=== PATIENT | male | born 1955 | race Caucasian/White ===

== ENCOUNTER 2016-05-27 15:10 | Emergency (ER) | payer BC ==
[~2016-05-27] VITALS: Ht 175.3 cm; Wt 78.2 kg
[~2016-05-27 15:10] MED LIST: ASPIRIN 32325 MG/TA1 PO; ASPIRIN 81M81 MG/TA2 PO; COZAAR 50MG50 MG/TAB PO; DESYREL 50MG50 MG PO; EPA FISH OIL1000 MG PO; LIPITOR 80MG80 MG PO; NORCO 325 MG-7.1 TAB PO; OCUVITE1 TA1 PO; ROXICODONE 55 MG/TAB PO; TOPROL XL 50MG50 MG PO; TYLENOL 325MG325 MG PO; ZYRTEC 10MG10 MG PO
[2016-05-27 15:12] VITALS: TEMP 97.6
[2016-05-27 15:35] LABS: BASO % 0.3 % (0.0-2.0); EOS # 0.1 (0.0-0.7); EOS % 1.3 % (0-4.0); GRAN # 4.3 (1.4-6.5); GRAN % 70.8 % (42.2-75.2); HEMATOCRIT 38.8 % (42.0-52.0); HEMOGLOBIN 13.1 g/dl (13.5-18.0); LYMPH # 1.3 (1.2-3.4); LYMPH % 20.5 % (20.0-51.0); MEAN CELL VOLUME 90 fl (80.0-100.0); MEAN CORPUSCULAR HEMOGLOBIN 30 pg (27.0-31.0); MEAN CORPUSCULAR HGB CONC 34 g/dl (33.0-37.0); MEAN PLATELET VOLUME 9.9 fl (7.4-10.4); MONO # 0.4 (0.1-0.6); MONO % 6.9 % (1.7-9.3); PLATELET COUNT 173 K/mm3 (130-400); RED BLOOD COUNT 4.33 M/mm3 (4.20-5.60); REDCELL DISTRIBUTION WIDTH-CV 13.4 % (11.5-14.5); WHITE BLOOD COUNT 6.1 K/mm3 (4.8-10.8)
[2016-05-27 15:39] LABS: INR 1.3 (0.8-3.0); PROTHROMBIN TIME 14.1 SECONDS (9.7-12.8)
[2016-05-27 15:41] LABS: PARTIAL THROMBOPLASTIN TIME 28.3 SECONDS (26.0-37.0)
[2016-05-27 15:48] LABS: ADJUSTED CALCIUM 9.1 mg/dL (8.4-10.2); ALANINE AMINOTRANSFERASE 38 U/L (21-72); ALBUMIN 4.1 gm/dL (3.5-5.0); ALKALINE PHOSPHATASE 92 U/L (50-136); ANION GAP 10 mmol/L (7-16); BLOOD UREA NITROGEN 11 mg/dL (9-20); CALCIUM 9.2 mg/dL (8.4-10.2); CARBON DIOXIDE 28 mmol/L (22-30); CHLORIDE 100 mmol/L (98-107); CREATININE, serum 0.82 mg/dL (0.66-1.25); GLUCOSE 105 mg/dL (74-106); POTASSIUM 3.9 mmol/L (3.4-5.0); SODIUM 138 mmol/L (137-145); TOTAL PROTEIN 6.7 gm/dL (6.4-8.2)
[2016-05-27] MEDS ORDERED: TYLENOL 500MG500 MG PO (15:56)
[2016-05-27 16:00] LABS: TROPONIN-I < 0.012 ng/mL (0.000-0.034)
[2016-05-27 18:46] VITALS: BP 118/64; PULSE 65
== END 2016-05-27 18:52 | disposition home or self-care (01) ==
LOC: COL.ER 15:10
PROVIDERS: Emergency Medicine
DX: R07.9 Chest pain, unspecified (principal)

== ENCOUNTER 2016-06-08 15:00 | Outpatient (RCR) | payer BC ==
[~2016-06-08 15:00] MED LIST changes: +TYLENOL 500MG500 MG PO
== END 2016-06-18 12:23 | disposition home or self-care (01) ==
LOC: WSPT 15:00
DX: Z47.89 Encounter for other orthopedic aftercare (principal); M25.861 Other specified joint disorders, right knee
CPT/HCPCS: G0283-GP

== ENCOUNTER 2016-12-25 16:00 | Outpatient (RCR) | payer BC | END 2016-12-27 17:22 | LOC: WSPT 16:00 | DX: M54.16 Radiculopathy, lumbar region (principal) ==

== ENCOUNTER → 2017-01-28 | Outpatient (CLI) | payer BC | LOC: COL.RAD 07:00 | DX: R09.89 Other specified symptoms and signs involving the circulatory and respiratory systems (principal) ==

== ENCOUNTER 2017-02-07 15:25 | Inpatient (IN) | payer BC ==
[~2017-02-07] VITALS: Ht 175.3 cm; Wt 83.0 kg
[2017-04-30] VITALS (12 sets, daily range): BP systolic 102–138; BP diastolic 57–78; PULSE 49–69; TEMP 97.5–98.7
[2017-05-01 04:51] VITALS: BP 112/60; PULSE 77; TEMP 97.8
[2017-05-01 06:40] LABS: HEMOGLOBIN 12.6 g/dl (13.5-18.0)
[2017-05-01 06:43] LABS: HEMATOCRIT 36.7 % (42.0-52.0)
[2017-05-01 07:54] VITALS: BP 118/63; PULSE 77; TEMP 97
[2017-05-01 12:07] VITALS: BP 102/57; PULSE 50; TEMP 97.6
== END 2017-05-01 17:00 | disposition home or self-care (01) | DRG 470 ==
LOC: SURG 04-30 08:14 → JCC 04-30 10:30 → SURG 05-01 17:00
PROVIDERS: Orthopaedic Surgery
PROC: 0SRD0J9 Replacement of Left Knee Joint with Synthetic Substitute, Cemented, Open Approach (ICD-10-PCS; principal; 2017-04-30 11:30)
DX: M17.12 Unilateral primary osteoarthritis, left knee (principal); Z87.891 Personal history of nicotine dependence
CPT/HCPCS: A4314; A4315; A9284; C1713; C1776; J0690; J1885; J2250; J2704; J3010; J7120

== ENCOUNTER → 2017-04-24 | Outpatient (CLI) | payer BC ==
[2017-04-24 13:17] LABS: HIV 1/2 Antibodies Non-Reactive; HIV-1p24 Antigen Non-Reactive
== END ==
LOC: COL.LAB 11:49
PROVIDERS: Orthopaedic Surgery
DX: Z01.812 Encounter for preprocedural laboratory examination (principal)

== ENCOUNTER 2017-06-10 15:45 | Outpatient (RCR) | payer BC | END 2017-06-20 11:19 | disposition home or self-care (01) | LOC: WSPT 15:45 | DX: Z47.1 Aftercare following joint replacement surgery (principal); Z96.652 Presence of left artificial knee joint | CPT/HCPCS: G0283-GP ==

== ENCOUNTER 2022-07-04 08:30 | Outpatient (RCR) | payer BC | END 2022-07-04 13:00 | disposition home or self-care (01) | LOC: WSPT 08:30 | DX: M54.2 Cervicalgia (principal) ==

== ENCOUNTER 2023-01-24 11:11 | Outpatient (RCR) | payer BC | END 2023-02-16 | disposition home or self-care (01) | LOC: WSPT | DX: M25.571 Pain in right ankle and joints of right foot (principal) ==